=== PATIENT | female | born 1995 | race Hispanic/Latino ===

== ENCOUNTER 2020-03-01 13:26 | Emergency (ER) | payer SELFPAY ==
[2020-03-01 14:14] LABS: #Basophils 0.1 thou/uL (0.0-0.2); #Eosinphils 0.1 thou/uL (0.0-0.7); #Lymphocytes 2.2 thou/uL (1.20-3.40); #Monocytes 0.3 thou/uL (0.11-0.59); #Neutrophils 4.3 thou/uL (1.40-6.50); %Basophils 1.4 % (0.0-1.0); %Eosinophils 1.5 % (0.0-10.0); %Lymphocytes 31.3 % (21.0-51.0); %Monocytes 4.5 % (0.0-10.0); %Neutrophils 61.3 % (42.0-75.0); Hemoglobin 10.8 g/dL (12.0-16.0); Mean Corpuscular HGB CONC 34.2 g/dL (32.0-36.0); Mean Corpuscular Hemoglobin 34.9 pg (27.0-31.0); Mean Platelet Volume 7.6 fL (7.4-10.4); Platelet Count 254 thou/uL (130-400); RBC Distribution Width 12.2 % (11.5-14.5); Red Blood Cell (RBC) Count 3.08 mill/uL (4.20-5.40)
[2020-03-01 14:26] LABS: BHCG - Serum Negative (NEGATIVE); Pregs Control Background? CLEAR/WHITE (CLR/WHITE); Pregs Control Bar Appear? YES (CONTROL BAR)
[2020-03-01 14:35] LABS: ALT (SGPT) 55 U/L (8-55); AST (SGOT) 75 U/L (5-34); Albumin 4.4 g/dL (3.5-5.0); Alkaline Phosphatase 76 U/L (40-110); Anion Gap 16 mmol/L (10-20); BUN (Urea Nitrogen) 13 mg/dL (7.0-18.7); Bilirubin, Total 0.3 mg/dL (0.2-1.2); Calc. Creatinine Clearance 0 mL/min (70-130); Calcium 8.4 mg/dL (7.8-10.44); Carbon Dioxide 22 mmol/L (22-29); Chloride 102 mmol/L (98-107); Estimated GFR-MDRD 88; Globulin 2.9 g/dL (2.4-3.5); Glucose 130 mg/dL (70-105); Potassium 3.8 mmol/L (3.5-5.1); Protein, Total 7.3 g/dL (6.0-8.3); Sodium 136 mmol/L (136-145)
--- NOTE | 2020-03-01 15:52 | ULT ---
PELVIC ULTRASOUND INCLUDING TRANSABDOMINAL AND TRANSVAGINAL AND VASCULAR DUPLEX WITH COLOR AND SPECTR AL DOPPLER IMAGING: HISTORY: Heavy vaginal bleeding. FINDINGS: The uterus measures 6.2 x 2.1 x 3.3 cm and has a slightly bicornuate-like appearance. Left ovary 3.0 x 1.8 x 2 cm. Right ovary 2.6 x 1.5 x 2.0 cm. No evidence for intrauterine mass. No free fluid. IMPRESSION: Unremarkable pelvic ultrasound other than a slightly bicornuate appearance to the uterus. POS: RRE
== END 2020-03-01 16:28 | disposition home or self-care (01) ==
LOC: ERS 13:26
DX: N93.8 Other specified abnormal uterine and vaginal bleeding (principal); F17.210 Nicotine dependence, cigarettes, uncomplicated
CPT/HCPCS: 76856; 80053; 84703; 85025

== ENCOUNTER 2021-04-19 21:24 | Inpatient (IN) | payer SELFPAY ==
[2021-04-19 22:45] LABS: Acetaminophen Less than 6.0 mcg/mL (10.0-30.0); Alcohol 320 mg/dL (Less than 10); Salicylate Less than 8.0 mg/dL (15.0-30.0)
[2021-04-19 22:46] LABS: ALT (SGPT) 91 U/L (8-55); AST (SGOT) 256 U/L (5-34); Albumin 4.1 g/dL (3.5-5.0); Alkaline Phosphatase 312 U/L (40-110); Anion Gap 20 mmol/L (10-20); BUN (Urea Nitrogen) 10 mg/dL (7.0-18.7); Calc. Creatinine Clearance 0 mL/min (70-130); Calcium 9.5 mg/dL (7.8-10.44); Carbon Dioxide 19 mmol/L (22-29); Chloride 99 mmol/L (98-107); Globulin 4.6 g/dL (2.4-3.5); Glucose 68 mg/dL (70-105); Potassium 4.2 mmol/L (3.5-5.1); Protein, Total 8.7 g/dL (6.0-8.3); Sodium 134 mmol/L (136-145)
[2021-04-19 23:12] LABS: #Eosinphils 0.1 thou/uL (0.0-0.7); #Lymphocytes 2.3 thou/uL (1.20-3.40); #Monocytes 0.6 thou/uL (0.11-0.59); #Neutrophils 9.9 thou/uL (1.40-6.50); %Basophils 0.3 % (0.0-1.0); %Eosinophils 0.5 % (0.0-10.0); %Lymphocytes 18.1 % (21.0-51.0); %Monocytes 4.4 % (0.0-10.0); %Neutrophils 76.7 % (42.0-75.0); Hemoglobin 14.6 g/dL (12.0-16.0); MDiff Complete? YES; Macrocytosis SLIGHT = 6-15 cells (100X) (0-5/hpf); Mean Corpuscular HGB CONC 33.5 g/dL (32.0-36.0); Mean Platelet Volume 8.6 fL (7.4-10.4); Platelet Count 257 thou/uL (130-400); RBC Distribution Width 12.7 % (11.5-14.5); Red Blood Cell (RBC) Count 3.93 mill/uL (4.20-5.40); White Blood Cell (WBC) Count 12.9 thou/uL (4.8-10.8)
[2021-04-19] MEDS ORDERED: Lorazepam 2 MG/ML VIAL ONE (23:16)
[2021-04-19] MEDS ORDERED: Thiamine 100 MG TAB ONE (23:16)
[2021-04-19 23:24] LABS: Pregnancy Test - Urine (BHCG) Negative (Negative); Pregu Control Background? CLEAR/WHITE (CLR/WHITE); Pregu Control Bar Appear? YES (CONTROL BAR)
[2021-04-19 23:27] LABS: Amphetamine Not Detected (NotDetected); Barbiturates Screen Not Detected (NotDetected); Benzodiazepine Screen Not Detected (NotDetected); Cocaine Metabolite Screen Detected (NotDetected); Methadone Not Detected (NotDetected); Methamphetamine Not Detected (NotDetected); Opiate Screen Detected (NotDetected); Oxycodone Screen Not Detected (NotDetected); Phencyclidine (PCP) Not Detected (NotDetected); Specific Gravity 1.023 (1.002-1.036); THC/Cannabinoid Screen Not Detected (NotDetected); Tricyclic Screen Not Detected (NotDetected)
[2021-04-19] MEDS ORDERED: Thiamine HCl 200 MG/2 ML VIAL SLOW IVP SCH (23:30)
[2021-04-19] MEDS ORDERED: Dextrose 50% Abboject 50 ML SYRINGE ONE (23:50)
[2021-04-20 08:46] LABS: SARS-CoV-2 NAA Rapid Test Not Detected (NotDetected)
[2021-04-20] MEDS ORDERED: Multivitamins, Adult 10 ML, Thiamine HCl 100 MG, Folic Acid 1 MG in Dextrose 5 %-0.45 %... IV SCH (09:00)
[2021-04-20 10:07] LABS: Hemoglobin 12.1 g/dL (12.0-16.0); Mean Corpuscular HGB CONC 32.8 g/dL (32.0-36.0); Mean Corpuscular Hemoglobin 36.3 pg (27.0-31.0); Platelet Count 203 thou/uL (130-400); RBC Distribution Width 12.6 % (11.5-14.5); Red Blood Cell (RBC) Count 3.33 mill/uL (4.20-5.40); White Blood Cell (WBC) Count 13.2 thou/uL (4.8-10.8)
[2021-04-20 10:30] LABS: ALT (SGPT) 83 U/L (8-55); AST (SGOT) 263 U/L (5-34); Albumin 3.5 g/dL (3.5-5.0); Alkaline Phosphatase 302 U/L (40-110); Anion Gap 17 mmol/L (10-20); BUN (Urea Nitrogen) 11 mg/dL (7.0-18.7); Bilirubin, Total 1.1 mg/dL (0.2-1.2); Calc. Creatinine Clearance 113 mL/min (70-130); Calcium 8.7 mg/dL (7.8-10.44); Carbon Dioxide 22 mmol/L (22-29); Chloride 99 mmol/L (98-107); Globulin 3.8 g/dL (2.4-3.5); Glucose 110 mg/dL (70-105); Potassium 4.3 mmol/L (3.5-5.1); Protein, Total 7.3 g/dL (6.0-8.3); Sodium 134 mmol/L (136-145)
[2021-04-20] MEDS ORDERED: Senokot S 8.6-50 MG TAB PO PRN (12:36)
[2021-04-20] MEDS ORDERED: Ondansetron PF 4 MG/2 ML Vial IVP PRN (12:36)
[2021-04-20] MEDS ORDERED: Calcium Carbonate 500 MG ChewTAB PO PRN (12:36)
[2021-04-20] MEDS ORDERED: Diazepam 5 MG TAB PO PRN (13:02)
[2021-04-20 13:11] LABS: Magnesium 1.5 mg/dL (1.6-2.6); Phosphorus 3.4 mg/dL (2.3-4.7)
[2021-04-20] MEDS ORDERED: Diazepam 5 MG TAB PO SCH (13:15)
[2021-04-20] MEDS ORDERED: Gabapentin 100 MG CAP PO PRN (16:21)
[2021-04-20] MEDS: Lorazepam 1 MG TAB PO PRN ×2 (17:08→21:29)
[2021-04-20] MEDS ORDERED: hydrALAZINE 20 MG/ML VIAL SLOW IVP PRN (21:29)
[2021-04-21] MEDS ORDERED: Diazepam 5 MG TAB PO PRN (04:00)
[2021-04-21 05:05] LABS: #Basophils 0.1 thou/uL (0.0-0.2); #Eosinphils 0.2 thou/uL (0.0-0.7); #Lymphocytes 2.3 thou/uL (1.20-3.40); #Monocytes 0.9 thou/uL (0.11-0.59); #Neutrophils 7.3 thou/uL (1.40-6.50); %Basophils 1.3 % (0.0-1.0); %Eosinophils 1.9 % (0.0-10.0); %Lymphocytes 20.9 % (21.0-51.0); %Monocytes 8.1 % (0.0-10.0); %Neutrophils 67.8 % (42.0-75.0); Hemoglobin 12.2 g/dL (12.0-16.0); Mean Corpuscular Hemoglobin 37.6 pg (27.0-31.0); Mean Platelet Volume 8.9 fL (7.4-10.4); Platelet Count 164 thou/uL (130-400); RBC Distribution Width 12.5 % (11.5-14.5); Red Blood Cell (RBC) Count 3.25 mill/uL (4.20-5.40); White Blood Cell (WBC) Count 10.8 thou/uL (4.8-10.8)
[2021-04-21 05:29] LABS: ALT (SGPT) 73 U/L (8-55); AST (SGOT) 198 U/L (5-34); Albumin 3.4 g/dL (3.5-5.0); Alkaline Phosphatase 297 U/L (40-110); Anion Gap 14 mmol/L (10-20); BUN (Urea Nitrogen) 9 mg/dL (7.0-18.7); Bilirubin, Total 1.5 mg/dL (0.2-1.2); Calc. Creatinine Clearance 113 mL/min (70-130); Calcium 9.1 mg/dL (7.8-10.44); Carbon Dioxide 24 mmol/L (22-29); Chloride 101 mmol/L (98-107); Globulin 3.8 g/dL (2.4-3.5); Glucose 101 mg/dL (70-105); Potassium 3.8 mmol/L (3.5-5.1); Protein, Total 7.2 g/dL (6.0-8.3); Sodium 135 mmol/L (136-145)
[2021-04-21 06:29] LABS: Bilirubin Negative (Negative); Blood, Urine Negative (Negative); Clarity Clear (Clear); Glucose, Urine (Dipstick) Normal (Negative); Ketone, Urine Negative (Negative); Leukocyte Negative Leu/uL (Negative); Mucous/LPF Rare LPF (<2+); Nitrite Negative (Negative); Protein, Urine (Dipstick) Negative (Neg-Trace); RBC/HPF 0-3 HPF (0-3); Specific Gravity, Urine 1.013 (1.002-1.036); Squamous Epithelial 0-3 HPF (0-3); Urobilinogen Normal mg/dL (Less than 2); WBC/HPF 0-3 HPF (0-3); pH, Urine 7.5 (5.0-9.0)
[2021-04-21 06:38] LABS: Bacteria/HPF Rare-Few HPF (None Seen)
[2021-04-21 06:40] LABS: Urine Culture Reflex No No
[2021-04-21] MEDS ORDERED: Magnesium Oxide 400 MG TAB PO SCH (09:00)
[2021-04-21] MEDS ORDERED: Amlodipine 5 MG TAB PO SCH (09:00)
[2021-04-21] MEDS ORDERED: Thiamine 100 MG TAB PO SCH (09:00)
[2021-04-21] MEDS ORDERED: Multivitamin W/ Minerals 1 TAB PO SCH (09:00)
[2021-04-21] MEDS ORDERED: Folic Acid 1 MG TAB PO SCH (09:00)
[2021-04-21] MEDS ORDERED: Magnesium 2 GM/50 ML 2 GM in Premix Bag 1 BAG IVPB SCH (12:00)
[2021-04-21] MEDS ORDERED: Gabapentin 300 MG CAP PO SCH ×2 (12:00→21:00)
[2021-04-21 13:25] LABS: Hemoglobin A1c 4.5 % (4.0-6.0)
[2021-04-21 14:02] VITALS: BMI 20.8
[2021-04-21 16:49] VITALS: BP 136/90
[2021-04-21 16:51] VITALS: TEMP 98.7
== END 2021-04-21 19:31 | disposition home or self-care (01) | DRG 74 ==
LOC: ERS 21:24 → 2NO 04-20 00:07 → ERHOLD 04-20 00:40 → 2NO 04-20 12:16
PROVIDERS: ADMIT Student in an Organized Health Care Education/Training Program; ATTEND Internal Medicine
DX: G62.1 Alcoholic polyneuropathy (principal); F10.188 Alcohol abuse with other alcohol-induced disorder; E87.1 Hypo-osmolality and hyponatremia; R45.851 Suicidal ideations; Y90.8 Blood alcohol level of 240 mg/100 ml or more; F14.10 Cocaine abuse, uncomplicated; K70.0 Alcoholic fatty liver; F41.9 Anxiety disorder, unspecified; F32.9 Major depressive disorder, single episode, unspecified; F11.10 Opioid abuse, uncomplicated; F17.200 Nicotine dependence, unspecified, uncomplicated; D72.829 Elevated white blood cell count, unspecified; R29.6 Repeated falls; Z20.822 Contact with and (suspected) exposure to COVID-19; E83.42 Hypomagnesemia; Z71.41 Alcohol abuse counseling and surveillance of alcoholic; Z71.51 Drug abuse counseling and surveillance of drug abuser
CPT/HCPCS: 0240U; 36415; 36416; 71045; 76705; 80053; 80306; 80307; 81001; 81025; 82607; 82746; 83036; 83735; 84100; 84443; 84484; 85025; 85027; 93005; J0360; J2060; J3411; J3475; J3490

== ENCOUNTER 2022-04-29 17:34 | Inpatient (IN) | payer SELFPAY ==
[~2022-04-29 17:34] MED LIST: Lorazepam 1 MG TAB PO PRN
[2022-04-29] MEDS ORDERED: cefTRIAXone\\ROCEPHIN 1 GM VIAL ONE (17:56)
[2022-04-29] MEDS ORDERED: Pantoprazole 40 MG VIAL ONE (17:56)
[2022-04-29] MEDS ORDERED: Octreotide Acetate 1,250 MCG in Sodium Chloride 0.9% 250 ML 250 ML IVPB SCH (18:00)
[2022-04-29 18:03] LABS: Actual Bicarbonate (HCO3v) 16 mEq/L (22-28); Analyzer IN Cardio ER; Base Excess -9.8 mEq/L (-2.0 to +3.0); Calcium, Ionized (venous) 0.96 mmol/L (1.16-1.32); Chloride (VBG) 103 mmol/L (98-106); Hemoglobin (Hb) 5.7 g/dL (11.7-15.5); Potassium (VBG) 3.64 mmol/L (3.70-5.30); pH (venous) 7.31 (7.32-7.43)
[2022-04-29 18:12] LABS: Hemoglobin 5.2 g/dL (12.0-16.0); Mean Corpuscular HGB CONC 31.8 g/dL (32.0-36.0); Mean Corpuscular Hemoglobin 33.1 pg (27.0-31.0); Mean Platelet Volume 9.4 fL (7.4-10.4); Platelet Count 105 thou/uL (130-400); RBC Distribution Width 12.7 % (11.5-14.5); Red Blood Cell (RBC) Count 1.57 mill/uL (4.20-5.40); White Blood Cell (WBC) Count 16.6 thou/uL (4.8-10.8)
[2022-04-29 18:22] LABS: #Basophils 0.1 thou/uL (0.0-0.2); #Lymphocytes 2.6 thou/uL (1.20-3.40); #Monocytes 1.4 thou/uL (0.11-0.59); #Neutrophils 12.5 thou/uL (1.40-6.50); %Basophils 0.5 % (0.0-1.0); %Eosinophils 0.3 % (0.0-10.0); %Lymphocytes 15.4 % (21.0-51.0); %Monocytes 8.3 % (0.0-10.0); %Neutrophils 75.5 % (42.0-75.0)
[2022-04-29 18:23] LABS: ALT (SGPT) 19 U/L (8-55); AST (SGOT) 81 U/L (5-34); Albumin 2.5 g/dL (3.5-5.0); Alkaline Phosphatase 128 U/L (40-110); Anion Gap 25 mmol/L (10-20); BUN (Urea Nitrogen) 17 mg/dL (7.0-18.7); Bilirubin, Total 1.4 mg/dL (0.2-1.2); Calc. Creatinine Clearance 0 mL/min (70-130); Calcium 7.3 mg/dL (7.8-10.44); Carbon Dioxide 16 mmol/L (22-29); Chloride 104 mmol/L (98-107); Estimated GFR 55; Glucose 116 mg/dL (70-105); Lipase 11 U/L (8-78); Potassium 3.8 mmol/L (3.5-5.1); Protein, Total 5.5 g/dL (6.0-8.3); Sodium 141 mmol/L (136-145)
[2022-04-29 18:26] LABS: PTT 43.3 sec (22.9-36.1)
[2022-04-29 18:29] LABS: MDiff Complete? YES; Platelet Morphology Comment Appears Decreased; Polychromasia SLIGHT = 2-3 cells (100X) (0-2/hpf)
[2022-04-29] MEDS ORDERED: Ondansetron PF 4 MG/2 ML Vial ONE (19:02)
[2022-04-29] MEDS ORDERED: Ketamine 50 MG/ML (10ML VIAL) ONE (19:45)
[2022-04-29] MEDS ORDERED: Fentanyl 100 MCG/2 ML VIAL ONE (19:45)
[2022-04-29] MEDS ORDERED: Midazolam HCl 2 mg/2 ml Vial ONE (19:45)
[2022-04-29 20:02] LABS: BHCG - Serum Negative (NEGATIVE); Pregs Control Background? CLEAR/WHITE (CLR/WHITE); Pregs Control Bar Appear? YES (CONTROL BAR)
[2022-04-29] MEDS ORDERED: Esmolol 100 MG/10 ML VIAL ONE (20:24)
[2022-04-29] MEDS ORDERED: Succinylcholine 200 MG/10 ml SYRINGE FS ONE (20:24)
[2022-04-29] MEDS ORDERED: Lidocaine 1% PF 5 ML VIAL ONE (20:24)
[2022-04-29 20:26] LABS: SARS-CoV-2 NAA Rapid Test Not Detected (NotDetected)
[2022-04-29] MEDS ORDERED: SUGAMMADEX SODIUM 200 MG/2 ML VIAL ONE (20:42)
[2022-04-29] MEDS ORDERED: Ondansetron PF 4 MG/2 ML Vial IVP PRN (20:48)
[2022-04-29] MEDS ORDERED: Ondansetron ODT 4 MG TAB PO PRN ×2 (20:48→23:15)
[2022-04-29 22:14] LABS: Hemoglobin 9.6 g/dL (12.0-16.0)
[2022-04-29 22:26] LABS: Lactic Acid 4.7 mmol/L (0.5-2.2)
[2022-04-29] MEDS: Multivitamins, Adult 10 ML, Folic Acid 1 MG, Thiamine HCl 100 MG in Dextrose 5 %-0.45 %... IV SCH (22:38)
[2022-04-29] MEDS ORDERED: Lorazepam 2 MG/ML VIAL IM PRN (23:00)
[2022-04-29] MEDS ORDERED: Electrolyte Replacement Protocol 1 EACH FS PRN (23:15)
[2022-04-29] MEDS ORDERED: diphenhydrAMINE 50 MG/ML VIAL IVP SCH (23:30)
[2022-04-29] MEDS: Lorazepam 2 MG/ML VIAL SLOW IVP SCH (23:42)
[2022-04-29] MEDS: Lorazepam 1 MG TAB PO SCH (23:49)
[2022-04-30 01:47] LABS: Lactic Acid 1.5 mmol/L (0.5-2.2)
[2022-04-30] MEDS: Lorazepam 2 MG/ML VIAL SLOW IVP PRN ×3 (03:57→12:38)
[2022-04-30] MEDS ORDERED: Lorazepam 1 MG TAB PO SCH (06:00)
[2022-04-30] MEDS ORDERED: Lorazepam 2 MG/ML VIAL SLOW IVP SCH (06:00)
[2022-04-30] MEDS: Lorazepam 2 MG/ML VIAL SLOW IVP SCH ×4 (06:19→23:26)
[2022-04-30 07:32] LABS: #Lymphocytes 1.1 thou/uL (1.20-3.40); #Monocytes 0.5 thou/uL (0.11-0.59); #Neutrophils 11.1 thou/uL (1.40-6.50); %Basophils 0.1 % (0.0-1.0); %Eosinophils 0.1 % (0.0-10.0); %Lymphocytes 8.9 % (21.0-51.0); %Monocytes 3.5 % (0.0-10.0); %Neutrophils 87.4 % (42.0-75.0); Hemoglobin 9.8 g/dL (12.0-16.0); Mean Corpuscular HGB CONC 32.8 g/dL (32.0-36.0); Mean Corpuscular Volume 97.6 fL (78.0-98.0); Platelet Count 55 thou/uL (130-400); Red Blood Cell (RBC) Count 3.07 mill/uL (4.20-5.40); White Blood Cell (WBC) Count 12.6 thou/uL (4.8-10.8)
[2022-04-30 07:42] LABS: INR-International Normal Ratio 1.4; Prothrombin Time 17.2 sec (12.0-14.7)
[2022-04-30 08:34] LABS: Anion Gap 14 mmol/L (10-20); BUN (Urea Nitrogen) 11 mg/dL (7.0-18.7); Calc. Creatinine Clearance 113 mL/min (70-130); Calcium 7.9 mg/dL (7.8-10.44); Carbon Dioxide 23 mmol/L (22-29); Chloride 105 mmol/L (98-107); Estimated GFR 122; Glucose 188 mg/dL (70-105); Potassium 4.2 mmol/L (3.5-5.1); Sodium 138 mmol/L (136-145)
[2022-04-30 08:42] LABS: HBSAg Index 0.26 S/CO (0-0.99); Hep B Surf Ag Non-Reactive S/CO (NonReactive); Hep C IgG Ab Non-Reactive (NonReactive); Hep C Index 0.06 S/CO (0-0.79)
[2022-04-30 10:11] LABS: HBSAB Concentration 53.92 mIU/mL; Hep B Surf AB Reactive (NonReactive)
[2022-04-30] MEDS ORDERED: Ziprasidone 20 MG VIAL IM PRN (13:34)
[2022-04-30 14:09] LABS: Amphetamine Not Detected (NotDetected); Barbiturates Screen Not Detected (NotDetected); Benzodiazepine Screen Detected (NotDetected); Cocaine Metabolite Screen Detected (NotDetected); Methadone Not Detected (NotDetected); Methamphetamine Not Detected (NotDetected); Opiate Screen Not Detected (NotDetected); Oxycodone Screen Not Detected (NotDetected); Phencyclidine (PCP) Not Detected (NotDetected); THC/Cannabinoid Screen Not Detected (NotDetected); Tricyclic Screen Not Detected (NotDetected)
[2022-04-30] MEDS: chlordiazePOXIDE HCl 25 MG CAP PO SCH ×2 (15:27→22:06)
[2022-04-30] MEDS: cefTRIAXone\\ROCEPHIN 1 GM in Sodium Chloride 0.9% 100 ML IVPB SCH (17:20)
[2022-04-30 18:42] LABS: EliA Vaculitis New Method **** NEW METHOD ****; Mitochondrial Ab 0.8 U/mL (<4 Negative)
[2022-04-30] MEDS ORDERED: Lorazepam 1 MG TAB PO PRN (23:15)
[2022-04-30] MEDS: Multivitamins, Adult 10 ML, Folic Acid 1 MG, Thiamine HCl 100 MG in Dextrose 5 %-0.45 %... IV SCH (23:25)
[2022-04-30] MEDS ORDERED: Lorazepam 2 MG/ML VIAL SLOW IVP PRN (23:39)
[2022-05-01] MEDS: Octreotide Acetate 1,250 MCG in Sodium Chloride 0.9% 250 ML 250 ML IVPB SCH (00:10)
[2022-05-01] MEDS ORDERED: Lorazepam 0.5 MG TAB PO SCH (06:00)
[2022-05-01] MEDS: Lorazepam 2 MG/ML VIAL SLOW IVP SCH ×3 (06:06→17:27)
[2022-05-01] MEDS: chlordiazePOXIDE HCl 25 MG CAP PO SCH ×3 (10:09→20:10)
[2022-05-01 13:03] VITALS: BMI 21.4
[2022-05-01 15:13] LABS: Alpha-1-Antitrypsin 201 mg/dL (100-188)
[2022-05-01 16:31] LABS: #Lymphocytes 1.6 thou/uL (1.20-3.40); #Monocytes 0.5 thou/uL (0.11-0.59); #Neutrophils 7.7 thou/uL (1.40-6.50); %Basophils 0.2 % (0.0-1.0); %Eosinophils 0.4 % (0.0-10.0); %Lymphocytes 16.6 % (21.0-51.0); %Monocytes 4.7 % (0.0-10.0); %Neutrophils 78.1 % (42.0-75.0); Mean Corpuscular HGB CONC 33.7 g/dL (32.0-36.0); Mean Corpuscular Hemoglobin 33.9 pg (27.0-31.0); Mean Platelet Volume 9.4 fL (7.4-10.4); Platelet Count 69 thou/uL (130-400); RBC Distribution Width 14.6 % (11.5-14.5); Red Blood Cell (RBC) Count 2.65 mill/uL (4.20-5.40); White Blood Cell (WBC) Count 9.9 thou/uL (4.8-10.8)
[2022-05-01 16:39] LABS: INR-International Normal Ratio 1.4; Prothrombin Time 17.7 sec (12.0-14.7)
[2022-05-01 16:48] LABS: ALT (SGPT) 37 U/L (8-55); AST (SGOT) 171 U/L (5-34); Albumin 2.7 g/dL (3.5-5.0); Alkaline Phosphatase 105 U/L (40-110); Anion Gap 10 mmol/L (10-20); BUN (Urea Nitrogen) 12 mg/dL (7.0-18.7); Bilirubin, Total 1.8 mg/dL (0.2-1.2); Calc. Creatinine Clearance 145 mL/min (70-130); Carbon Dioxide 27 mmol/L (22-29); Chloride 111 mmol/L (98-107); Estimated GFR 131; Globulin 3.1 g/dL (2.4-3.5); Glucose 111 mg/dL (70-105); Potassium 3.6 mmol/L (3.5-5.1); Protein, Total 5.8 g/dL (6.0-8.3); Sodium 144 mmol/L (136-145)
[2022-05-01] MEDS: cefTRIAXone\\ROCEPHIN 1 GM in Sodium Chloride 0.9% 100 ML IVPB SCH (17:27)
[2022-05-01] MEDS: Multivitamins, Adult 10 ML, Folic Acid 1 MG, Thiamine HCl 100 MG in Dextrose 5 %-0.45 %... IV SCH (21:57)
[2022-05-01] MEDS ORDERED: Lorazepam 1 MG TAB PO PRN (23:15)
[2022-05-01] MEDS ORDERED: Lorazepam 2 MG/ML VIAL SLOW IVP PRN (23:59)
[2022-05-02] MEDS: Lorazepam 2 MG/ML VIAL SLOW IVP SCH ×4 (00:52→18:05)
[2022-05-02] MEDS: Octreotide Acetate 1,250 MCG in Sodium Chloride 0.9% 250 ML 250 ML IVPB SCH (00:52)
[2022-05-02] MEDS ORDERED: Lorazepam 0.5 MG TAB PO PRN (06:00)
[2022-05-02 06:53] LABS: #Eosinphils 0.1 thou/uL (0.0-0.7); #Lymphocytes 1.8 thou/uL (1.20-3.40); #Monocytes 0.6 thou/uL (0.11-0.59); #Neutrophils 6.8 thou/uL (1.40-6.50); %Basophils 0.5 % (0.0-1.0); %Eosinophils 0.8 % (0.0-10.0); %Lymphocytes 19.6 % (21.0-51.0); %Monocytes 6.7 % (0.0-10.0); %Neutrophils 72.5 % (42.0-75.0); Hemoglobin 8.4 g/dL (12.0-16.0); Mean Corpuscular HGB CONC 32.4 g/dL (32.0-36.0); Mean Platelet Volume 9.8 fL (7.4-10.4); Platelet Count 71 thou/uL (130-400); RBC Distribution Width 14.7 % (11.5-14.5); Red Blood Cell (RBC) Count 2.56 mill/uL (4.20-5.40); White Blood Cell (WBC) Count 9.4 thou/uL (4.8-10.8)
[2022-05-02 07:10] LABS: Anion Gap 9 mmol/L (10-20); BUN (Urea Nitrogen) 11 mg/dL (7.0-18.7); Calc. Creatinine Clearance 155 mL/min (70-130); Calcium 7.8 mg/dL (7.8-10.44); Carbon Dioxide 25 mmol/L (22-29); Chloride 109 mmol/L (98-107); Estimated GFR 133; Glucose 97 mg/dL (70-105); Potassium 3.2 mmol/L (3.5-5.1); Sodium 140 mmol/L (136-145)
[2022-05-02] MEDS ORDERED: Potassium Chloride 20 MEQ TAB PO SCH (08:00)
[2022-05-02] MEDS: Folic Acid 1 MG TAB PO SCH (09:13)
[2022-05-02] MEDS: chlordiazePOXIDE HCl 25 MG CAP PO SCH ×3 (09:13→22:29)
[2022-05-02] MEDS: Thiamine 100 MG TAB PO SCH (09:14)
[2022-05-02] MEDS: Multivit, Therapeutic 1 TAB PO SCH (09:14)
[2022-05-02] MEDS: Potassium Chloride 20 MEQ in Premix Bag 1 BAG IVPB SCH ×2 (09:16→12:26)
[2022-05-02] MEDS ORDERED: Iopamidol 370 76% 100 ML VIAL ONE (11:42)
[2022-05-02 15:37] LABS: Smooth Muscle Total ABS 4 Units (0-19)
[2022-05-02] MEDS: cefTRIAXone\\ROCEPHIN 1 GM in Sodium Chloride 0.9% 100 ML IVPB SCH (17:23)
[2022-05-02] MEDS ORDERED: Lorazepam 2 MG/ML VIAL SLOW IVP PRN (23:59)
[2022-05-03] MEDS: Octreotide Acetate 1,250 MCG in Sodium Chloride 0.9% 250 ML 250 ML IVPB SCH (02:04)
[2022-05-03 05:40] LABS: ALT (SGPT) 38 U/L (8-55); AST (SGOT) 133 U/L (5-34); Albumin 2.8 g/dL (3.5-5.0); Alkaline Phosphatase 148 U/L (40-110); Anion Gap 11 mmol/L (10-20); BUN (Urea Nitrogen) 4 mg/dL (7.0-18.7); Bilirubin, Total 1.1 mg/dL (0.2-1.2); Calc. Creatinine Clearance 148 mL/min (70-130); Calcium 8.1 mg/dL (7.8-10.44); Carbon Dioxide 27 mmol/L (22-29); Chloride 102 mmol/L (98-107); Estimated GFR 132; Glucose 85 mg/dL (70-105); Potassium 3.2 mmol/L (3.5-5.1); Protein, Total 5.8 g/dL (6.0-8.3); Sodium 137 mmol/L (136-145)
[2022-05-03 06:35] LABS: INR-International Normal Ratio 1.3; Prothrombin Time 16.2 sec (12.0-14.7)
[2022-05-03 06:55] LABS: #Basophils 0.1 thou/uL (0.0-0.2); #Eosinphils 0.1 thou/uL (0.0-0.7); #Lymphocytes 2.2 thou/uL (1.20-3.40); #Monocytes 1.1 thou/uL (0.11-0.59); #Neutrophils 6.9 thou/uL (1.40-6.50); %Basophils 0.9 % (0.0-1.0); %Lymphocytes 21.2 % (21.0-51.0); %Monocytes 10.2 % (0.0-10.0); %Neutrophils 66.7 % (42.0-75.0); Hemoglobin 8.4 g/dL (12.0-16.0); Mean Corpuscular Hemoglobin 33.8 pg (27.0-31.0); Mean Corpuscular Volume 99.5 fL (78.0-98.0); Mean Platelet Volume 10.1 fL (7.4-10.4); Platelet Count 81 thou/uL (130-400); RBC Distribution Width 14.5 % (11.5-14.5); Red Blood Cell (RBC) Count 2.47 mill/uL (4.20-5.40); White Blood Cell (WBC) Count 10.4 thou/uL (4.8-10.8)
[2022-05-03] MEDS ORDERED: Potassium Chloride 20 MEQ TAB PO SCH (08:00)
[2022-05-03] MEDS: Folic Acid 1 MG TAB PO SCH (09:05)
[2022-05-03] MEDS: Thiamine 100 MG TAB PO SCH (09:05)
[2022-05-03] MEDS: Multivit, Therapeutic 1 TAB PO SCH (09:05)
[2022-05-03] MEDS: chlordiazePOXIDE HCl 25 MG CAP PO SCH ×3 (09:05→20:31)
[2022-05-03] MEDS ORDERED: Pantoprazole 40 MG VIAL IVP SCH (12:15)
[2022-05-03] MEDS: cefTRIAXone\\ROCEPHIN 1 GM in Sodium Chloride 0.9% 100 ML IVPB SCH (17:25)
[2022-05-04] MEDS ORDERED: Pantoprazole 40 MG VIAL IVP SCH (09:00)
[2022-05-04] MEDS: Thiamine 100 MG TAB PO SCH (09:49)
[2022-05-04] MEDS: chlordiazePOXIDE HCl 25 MG CAP PO SCH (09:49)
[2022-05-04] MEDS: Multivit, Therapeutic 1 TAB PO SCH (09:49)
[2022-05-04] MEDS: Folic Acid 1 MG TAB PO SCH (09:49)
[2022-05-04 12:32] VITALS: BP 117/75; TEMP 99
== END 2022-05-04 12:31 | disposition home or self-care (01) | DRG 432 ==
LOC: ERS 17:34 → CCU 20:19 → IMCU/EMU 05-01 21:12 → T4-B 05-04 07:25
PROVIDERS: ADMIT Hospitalist; ATTEND Hospitalist
PROC: 30233L1 Transfusion of Nonautologous Fresh Plasma into Peripheral Vein, Percutaneous Approach (ICD-10-PCS; principal; 2022-04-29)
PROC: 30233N1 Transfusion of Nonautologous Red Blood Cells into Peripheral Vein, Percutaneous Approach (ICD-10-PCS; 2022-04-29)
PROC: 06L38CZ Occlusion of Esophageal Vein with Extraluminal Device, Via Natural or Artificial Opening Endoscopic (ICD-10-PCS; 2022-04-29)
DX: K70.31 Alcoholic cirrhosis of liver with ascites (principal); R57.8 Other shock; I85.11 Secondary esophageal varices with bleeding; R57.1 Hypovolemic shock; N17.9 Acute kidney failure, unspecified; D62 Acute posthemorrhagic anemia; F10.231 Alcohol dependence with withdrawal delirium; Z20.822 Contact with and (suspected) exposure to COVID-19; F41.9 Anxiety disorder, unspecified; F31.9 Bipolar disorder, unspecified; F14.10 Cocaine abuse, uncomplicated; D75.838 Other thrombocytosis; K81.9 Cholecystitis, unspecified; E27.8 Other specified disorders of adrenal gland; Z79.899 Other long term (current) drug therapy
CPT/HCPCS: 36415; 36430; 74177; 76705; 80048; 80053; 80306; 82103; 82105; 82390; 82805; 83516; 83605; 83690; 84484; 84703; 85025; 85610; 85730; 86015; 86706; 86708; 86803; 86850; 86900; 86901; 87340; 90471; 90732; 93005; 93975; 96365; 96366; 96375; 99292; C9113; G0009; J0696; J0744; J1200; J2060; J2250; J2354; J2405; J3010; J3411; J3480; J3486; J3490; J7042; J7050; P9016; P9059; Q9967; U0002

== ENCOUNTER 2023-02-14 06:12 | Day surgery (SDC) | payer BC ==
[2023-02-12 11:10] VITALS: BMI 26.7
[2023-02-14] MEDS ORDERED: PROPOFOL 200 MG/20 ML VIAL ONE (08:44)
[2023-02-14] MEDS ORDERED: Lidocaine 1% PF 5 ML VIAL ONE (08:44)
== END 2023-02-14 09:54 | disposition home or self-care (01) ==
LOC: EDBD → SDC 06:12
PROVIDERS: ATTEND Internal Medicine Gastroenterology
PROC: 06L38CZ Occlusion of Esophageal Vein with Extraluminal Device, Via Natural or Artificial Opening Endoscopic (ICD-10-PCS; principal; 2023-02-14)
DX: K70.30 Alcoholic cirrhosis of liver without ascites (principal); I85.10 Secondary esophageal varices without bleeding; K29.70 Gastritis, unspecified, without bleeding; F10.11 Alcohol abuse, in remission; F17.200 Nicotine dependence, unspecified, uncomplicated; Z79.899 Other long term (current) drug therapy
CPT/HCPCS: J2704